=== PATIENT | male | born 1970 | race Caucasian/White ===

== ENCOUNTER 2017-07-25 03:34 | Emergency (ER) | payer OTHER, MEDICAID ==
[~2017-07-25] VITALS: Ht 167.6 cm; Wt 91.0 kg
[2017-07-25] MEDS ORDERED: LORAZEPAM 2MG/ML CPJ IV ONE (05:15)
[2017-07-25] MEDS ORDERED: LEVETIRACETAM 500MG PREMIX 100 ML IV ONE (05:15)
[2017-07-25 07:26] VITALS: BP 126/75
== END 2017-07-25 07:41 | disposition home or self-care (01) ==
LOC: EDBD 03:34 → ER 03:34
DX: R56.9 Unspecified convulsions (principal)
CPT/HCPCS: 96365; 96375; 99284; J1953; J2060

== ENCOUNTER 2020-09-02 09:24 | Emergency (ER) | payer MEDICARE, MEDICAID ==
[~2020-09-02] VITALS: Ht 167.6 cm; Wt 81.0 kg
[2020-09-02] MEDS ORDERED: LEVETIRACETAM 1000MG/100ML 100 ML IV ONE (09:45)
[2020-09-02] MEDS ORDERED: SODIUM CHLORIDE 0.9% 1,000 ML IV ONE ×2 (09:45→10:00)
[2020-09-02 10:17] LABS: BASOPHILS % 0.6 % (0.0-2.0); EOSINOPHILS % 3.9 % (0.0-5.0); HEMATOCRIT. 40.9 % (42.0-52.0); LYMPHOCYTES % 19.4 % (20.0-50.0); MEAN CORPUSCULAR HEMOGLOBIN 29.2 pg (28.0-32.0); MEAN CORPUSCULAR VOLUME 85.4 fL (80.0-94.0); MONOCYTES % 7.6 % (2.0-8.0); NEUTROPHILS % 68.5 % (40.0-76.0); PLATELET 195 x1000/uL (130-400); RED BLOOD CELL COUNT 4.79 mill/uL (4.7-6.1); RED CELL DISTRIBUTION WIDTH 13.5 % (11.6-14.6)
[2020-09-02 10:24] LABS: CHLORIDE 103 mEq/L (98-107)
[2020-09-02 10:31] LABS: ETHANOL BLOOD < 10 mg/dL
[2020-09-02 10:35] LABS: CREATINE KINASE 311 IU/L (39-308)
[2020-09-02] MEDS ORDERED: PHENYTOIN SODIUM EXTENDED 100MG CAPSULE PO ONE (11:00)
[2020-09-02] MEDS ORDERED: POTASSIUM CHLORIDE 20MEQ TABLET SR PO ONE (11:00)
[2020-09-02 13:54] VITALS: BP 131/84
[2020-09-02 14:31] LABS: CLARITY URINE CLEAR (CLEAR); KETONES URINE NEGATIVE (NEGATIVE); LEUKOCYTE ESTERASE URINE NEGATIVE (NEGATIVE); NITRITE URINE NEGATIVE (NEGATIVE); OCCULT BLOOD URINE NEGATIVE (NEGATIVE); PROTEIN URINE NEGATIVE (NEGATIVE); SPECIFIC GRAVITY URINE 1.012 (1.005-1.030); UROBILINOGEN URINE 0.2 E.U./dL (0.2-1.0)
[2020-09-02 14:32] LABS: COLOR URINE PALE YELLOW (YELLOW)
[2020-09-02 14:54] LABS: *BARBITURATES SCREEN URINE NEGATIVE (NEGATIVE)
[2020-09-02 14:55] LABS: *AMPHETAMINES SCREEN URINE PRESUMTIVE POSITIVE (NEGATIVE); *BENZODIAZEPINES SCREEN URINE NEGATIVE (NEGATIVE); *COCAINE SCREEN URINE NEGATIVE (NEGATIVE); METHADONE URINE SCREEN NEGATIVE (NEGATIVE); OPIATES URINE SCREEN NEGATIVE (NEGATIVE); PHENCYCLIDINE URINE SCREEN NEGATIVE (NEGATIVE)
[2020-09-02 14:56] LABS: CANNABINOID URINE SCREEN NEGATIVE (NEGATIVE)
== END 2020-09-02 14:20 | disposition home or self-care (01) ==
LOC: ER 09:24 → CANBEDREQ 15:05
DX: R56.9 Unspecified convulsions (principal)
CPT/HCPCS: 36415; 71045; 80053; 80185; 80305; 80320; 81003; 82550; 84484; 85025; 93005; 96365; 96366; 99285; J1953; J7030; G0480